=== PATIENT | female | born 1980 | race Caucasian/White ===

== ENCOUNTER 2019-10-05 11:59 | Outpatient (REF) | payer SELFPAY ==
--- NOTE | 2019-10-05 11:20 | PAPFT_PTH ---
PATIENT: Dulce Castañeda LOC: N U#:[id number] AGE/SX: 39/F ROOM: RE10/05/[address]: Lori Paredes DO : 1980 BED: DIS: 10/05/2019 SPEC #: [id number] RECD: 10/05/19 16:54 STATUS: CARLOS REQ #: [id number] JEREMIAS: 10/05/19 11:[address]: Lori Paredes DEPT: [facility] Cytology RECD BY: Donaldo Manning Tissues: 1 - CX/ENDOCX FOR PAP SMEARS Procedures: PAP THIN PREP/UVM Screening HPV DNA PROBE Comments: [id number]
== END 2019-10-05 12:19 ==
LOC: LBN 11:59
PROVIDERS: Visit Provider Obstetrics & Gynecology
DX: Z12.4 Encounter for screening for malignant neoplasm of cervix (principal); Z12.79 Encounter for screening for malignant neoplasm of other genitourinary organs; R87.610 Atypical squamous cells of undetermined significance on cytologic smear of cervix (ASC-US); Z11.51 Encounter for screening for human papillomavirus (HPV)
CPT/HCPCS: 88142; 87624

== ENCOUNTER 2019-10-06 12:38 | Outpatient (REF) | payer SELFPAY ==
--- NOTE | 2019-10-06 11:45 | SKI_PTH ---
PATIENT: Dulce Castañeda LOC: [facility] U#:[id number] AGE/SX: 39/F ROOM: RE10/06/[address]: Ama Patel : 1980 BED: DIS: 10/06/2019 SPEC #: [id number] RECD: 10/06/19 13:00 STATUS: CARLOS REQ #: [id number] JEREMIAS: 10/06/19 11:[address]: Ama Patel DEPT: Surgical Specimen RECD BY: Hanna Matute ENTERED: 10/06/19 13:00 SP TYPE: JUANITA OROZCO DR: Unknown,Unknown Tissues: 1 - SKIN BIOPSY(SHAVE/PUNCH) Procedures: SKIN LEVEL 4 Comments: [id number]
== END 2019-10-06 12:58 ==
LOC: LBN 12:38
PROVIDERS: Visit Provider Surgery
DX: L82.1 Other seborrheic keratosis (principal)
CPT/HCPCS: 88305

== ENCOUNTER 2020-05-15 09:06 | Emergency (ER) | payer OTHER, SELFPAY ==
[2020-05-15 09:12] VITALS: BP 129/88; PULSE 86; RESP 18; TEMP 36.6; O2SAT 99
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
[2020-05-15] MEDS: Acetaminophen 500 MG TAB 1000 MG PO (09:37)
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
[2020-05-15 10:14] VITALS: BP 122/77; PULSE 74; RESP 18; TEMP 37; O2SAT 100
[2020-05-15 11:13] VITALS: BP 113/72; PULSE 76; RESP 18; TEMP 37; O2SAT 98
--- NOTE | 2020-05-15 16:54 | NUR.NOTE ---
Pt Rx for cyclobenzaprine did not transmit to pharmacy. Rx called in by phone to [facility] per pt request
== END 2020-05-15 11:20 | disposition home or self-care (01) ==
PROVIDERS: Emergency Provider Physician Assistant; PCP Physician Assistant Medical
DX: S93.491A Sprain of other ligament of right ankle, initial encounter (principal); M54.5 Low back pain; R51.9 Headache, unspecified; V47.5XXA Car driver injured in collision with fixed or stationary object in traffic accident, initial encounter
CPT/HCPCS: 99284; 70450; 72110; 72125; 73610

== ENCOUNTER 2022-06-02 19:42 | Emergency (ER) | payer SELFPAY ==
[2022-06-02 19:51] VITALS: BP 135/87; PULSE 90; RESP 15; TEMP 35.9; O2SAT 95
--- NOTE | 2022-06-02 20:00 | DI.RAD_ITS ---
Exam(s) XR CHEST 2V PA LATERAL EXAM: XR CHEST 2V PA LATERAL CLINICAL HISTORY: Cough, SOB. TECHNIQUE: 2D digital imaging was performed. COMPARISON: No exams were available for comparison FINDINGS: 2 views: Heart size is normal. The mediastinum is not widened. Lungs are clear. No infiltrates nor pleural effusions. IMPRESSION: No acute pulmonary findings. DATA REPOSITORY: RADIATION DOSE DELIVERED:
--- NOTE | 2022-06-02 20:04 | ED.GENADUL_ITS ---
Discharge Plan Disposition Patient Disposition: Home Discharge Details Clinical Impression: Bronchitis Primary Care Provider: Lex Zavala ED Provider: Fina Blue Home Meds and New Rx's Prescriptions: New azithromycin 250 mg tablet See Rx Instructions .ROUTE .COMPLEX 6 Days Qty: 6 0RF Rx Instructions: For 250 mg dose pack: take 500 mg today (day 1), then 250 mg for 4 days (days 2-5) Continued albuterol sulfate 90 mcg/actuation HFA aerosol inhaler 2 puff inhalation Q6H PRN (Reason: shortness of breath or wheezing) Qty: 6.7 0RF (DME) Aerochamber MV Spacer See Rx Instructions .Route Qty: 1 0RF Rx Instructions: As directed amoxicillin-pot clavulanate 875-125 mg tablet 1 tab PO BID 7 Days Qty: 14 0RF Rx Instructions: Take with meal. Take 1 pill every 12 hours x 7days benzonatate 100 mg capsule 100 mg PO TID PRN (Reason: cough) 7 Days Qty: 20 0RF Mirena 1 EACH intrauterine device 1 ea Intrauterine ONCE Qty: 1 Discharge Instructions Instructions: Acute Bronchitis (ED) Additional Instructions: Please stop the Augmentin and take the azithromycin as prescribed. Chest x-ray shows bronchitis. No evidence of pneumonia. Continue taking the albuterol inhaler and Tessalon Perles. Mucinex will make her cough worse as this is an expectorant. Follow up with primary care provider in 3-5 days. Return to ED sooner if any worsening or concerns. Increase oral fluids. Please take Tylenol or Ibuprofen with food every 4-6 hours as needed for pain and swelling. Referrals: Lex Zavala PA [Primary Care Provider] - 5 days Medical Decision Making 42-year-old female presents to the ER with URI type symptoms after being seen in urgent care 2 days ago being diagnosed with URI prescribed albuterol, and Augmentin and Tessalon Perles. She also reports she been taking Mucinex. Cough is worse at night she is having hard time sleeping. She is not a smoker. She reports not feeling any better. Chest x-ray ordered. We will consider changing her antibiotics to azithromycin or doxycycline. X-ray result noted below. This text was generated using [employer] system, please disregard any oddities of phrase or misspellings. Imaging Data Radiologic Study: Imaging: X-Ray Radiologist's impression: TECHNIQUE: Imaging protocol: Radiologic exam of the chest. Views: 2 views. COMPARISON: CT HEAD CERVICAL SPINE WO 05/15/2020 9:39 AM FINDINGS: Lungs: Question mild peribronchial thickening. No consolidation. Pleural spaces: Unremarkable. No pleural effusion. No pneumothorax. Heart/Mediastinum: Unremarkable. No cardiomegaly. Bones/joints: Unremarkable. IMPRESSION: Question mild bronchitis No focal consolidation Thank you for allowing us to participate in the care of your patient. Dictated and Authenticated by: Joce Felipe MD HPI General Mode of arrival: ambulatory . Date/Time Provider Initiated Documentation: 06/02/22 19:42 . Limitations to Documentation: no limitations . Information obtained by: patient, RN notes reviewed and old records reviewed . HPI Narrative: 42-year-old female presents to the ER with URI type symptoms after being seen in urgent care 2 days ago being diagnosed with URI prescribed albuterol, and Augmentin and Tessalon Perles. She also reports she been taking Mucinex. Cough is worse at night she is having hard time sleeping. She is not a smoker. She reports not feeling any better. Related Data Home Medications Medication Instructions Recorded Confirmed levonorgestrel 21 mcg/24 hours (8 1 ea intrauterine ONCE #1 implant 01/20/17 06/02/22 yrs) 52 mg intrauterine device (Mirena) albuterol sulfate 90 mcg/actuation 2 puff inhalation Q6H PRN 03/22/22 06/02/22 aerosol inhaler shortness of breath or wheezing #6.7 grams inhalational spacing device #1 ea 03/22/22 06/02/22 (Aerochamber MV spacer) amoxicillin 875 mg-potassium 1 tab PO BID 7 days #14 tabs 05/31/22 06/02/22 clavulanate 125 mg tablet benzonatate 100 mg capsule 100 mg PO TID PRN cough 7 days #20 05/31/22 06/02/22 caps azithromycin 250 mg tablet See Rx Instructions PO .COMPLEX 6 06/02/22 days #6 tabs Previous Rx's Medication Instructions Recorded albuterol sulfate 90 mcg/actuation 2 puff inhalation Q6H PRN 03/22/22 aerosol inhaler shortness of breath or wheezing #6.7 grams inhalational spacing device #1 ea 03/22/22 (Aerochamber MV spacer) amoxicillin 875 mg-potassium 1 tab PO BID 7 days #14 tabs 05/31/22 clavulanate 125 mg tablet benzonatate 100 mg capsule 100 mg PO TID PRN cough 7 days #20 05/31/22 caps azithromycin 250 mg tablet See Rx Instructions PO .COMPLEX 6 06/02/22 days #6 tabs Allergies Allergy/AdvReac Type Severity Reaction Status Date / Time No Known Drug Allergies Allergy Unverified 06/02/22 19:57 General Stated Complaint: RespSymp NARCISA: 3 Review of Systems All systems reviewed & are unremarkable except as noted in HPI and below Cardiovascular Cardiovascular: Reports dyspnea Respiratory Respiratory: Reports cough and Reports dyspnea PFSH All Active Problems (Updated 06/02/22 @ 21:24 by Fina Blue NP) Bronchitis (Acute) Ankle sprain (Acute) Headache (Acute) Contraception management (Acute) Well woman exam with routine gynecological exam (Acute) Pigmented skin lesion of uncertain nature (Acute) Family History Other Colon cancer Social History Smoking/Tobacco Use Status: Former Tobacco Use Second Hand Exposure: No Smoking risk assessment performed?: Yes Alcohol Intake: former Drug use: Never Substance use type: does not use Household members: significant other and children Number of Children: 1 What is your relationship status?: living with partner Panel score (0-1 are the most socially isolated patients): 1 Seatbelt use: always Do you feel safe at home: Yes Do you feel safe in your relationship?: Yes Female Reproductive History Menstrual control method: progestin IUCD and other (mirena inserted 04/2011) History History 2 Para Hx # Term Pregnancies 1 Multiple births Hx # Pregnancies Ectopic pregnancies AB induced Hx Number of Living Children AB spontaneous Exam Narrative Exam Narrative: Constitutional: Alert and oriented x3. Appears stated age. Normal body habitus. Head: Normocephalic, no trauma. Eyes: Pupils PERRL, Red reflex noted, EOM's intact. Eyelids symmetrical without lesions, discharge, or swelling. ENT: Bilateral TM's WNL, External ear normal to inspection, no mastoid TTP, swelling, or erythema, Nasal turbinates WNL, no nasal discharge. Normal dentition, Posterior pharynx WNL, no exudate. Chest: RRR, Normal S1, S2, distal pulses intact. Resp: Lungs clear to auscultation bilaterally, no wheezes, rales, or rhonchi. Abdomen: Soft, non-distended, Normoactive bowel sounds all 4 quads. Musculoskeletal: Normal gait, 5/5 strength to all four extremities. Skin: No suspicious rashes or lesions. Capillary refill less than 2 sec. Neurologic: Cranial nerves II-XII intact. Alert and oriented x 3. Motor: No deficits noted. Sensory: Intact bilaterally all 4 extremities. Reflexes: DTR's intact bilaterally.. Hematologic/Lymphatic: No ecchymosis, no lymphadenopathy. Course Vital Signs Vital signs: Vital Signs Temperature 35.9 C L 06/02/22 19:51 Pulse 90 06/02/22 19:51 Respiratory Rate 15 06/02/22 19:51 Blood Pressure 135/87 06/02/22 19:51 Pulse Oximetry 95 06/02/22 19:51 Temperature 35.9 C L 06/02/22 19:51 Temperature Source Temporal Artery Scan 06/02/22 19:51 Pulse 90 06/02/22 19:51 Respiratory Rate 15 06/02/22 19:51 Respiratory Effort Short of Breath 06/02/22 19:56 Blood Pressure 135/87 06/02/22 19:51 Blood Pressure Position Sitting 06/02/22 19:51 Pulse Oximetry 95 06/02/22 19:51 Oxygen Delivery Method Room Air 06/02/22 19:51 Oxygen Flow Rate 0 06/02/22 19:51 Pain Level 0 06/02/22 19:51
--- NOTE | 2022-06-02 21:22 | DI.VRAD_ITS ---
PROCEDURE INFORMATION: Exam: XR Chest Exam date and time: 06/02/2022 8:45 PM Age: 42 years old Clinical indication: Cough and shortness of breath; Patient HX: Cough, SOB TECHNIQUE: Imaging protocol: Radiologic exam of the chest. Views: 2 views. COMPARISON: CT HEAD CERVICAL SPINE WO 05/15/2020 9:39 AM FINDINGS: Lungs: Question mild peribronchial thickening. No consolidation. Pleural spaces: Unremarkable. No pleural effusion. No pneumothorax. Heart/Mediastinum: Unremarkable. No cardiomegaly. Bones/joints: Unremarkable. IMPRESSION: Question mild bronchitis No focal consolidation Dictated and Authenticated by: Joce Felipe MD. Ordering:EMMANUEL Harden MD
== END 2022-06-02 21:40 | disposition home or self-care (01) ==
PROVIDERS: Emergency Provider Registered Nurse Emergency; PCP Physician Assistant Medical
DX: J40 Bronchitis, not specified as acute or chronic (principal)
CPT/HCPCS: 99283; 71046; 99284

== ENCOUNTER → 2023-02-28 00:53 | Outpatient (CLI) | payer MEDICAID, SELFPAY ==
--- NOTE | 2023-02-28 09:45 | DI.MAMMO_ITS ---
Exam(s) MAMMO SCREENING EXAM: MAMMO SCREENING CLINICAL HISTORY: SCREENING,Z12.31 TECHNIQUE: Mammograms were interpreted according to the usual protocol including computer analysis w [employer] CAD system, tomosynthesis and C-view imaging. COMPARISON: None. Baseline examination. FINDINGS: The breasts are composed of heterogeneously dense fibroglandular densities, Breast Density category C . No suspicious masses or suspicious microcalcifications are seen. No skin thickening or abnormal axillary lymph nodes are seen. IMPRESSION: BI-RADS Category 1, Negative mammogram. Yearly screening mammography is recommended. Breast Density Category C, heterogeneously Dense. The mammogram demonstrates the patient's breast tissue is dense. Dense breast tissue is very common a nd is not abnormal but dense breast tissue can make it harder to find cancer on a mammogram. Also, de nse breast tissue may increase breast cancer risk. This information about the result of the mammogram report was provided to the patient to raise their awareness. Use this report when you speak with the patient about their risks for breast cancer, which includes their family history. At that time, you may recommend additional screening tests (Ultrasound or MRI) as they might be useful based on their r isk. A negative radiographic report should not delay biopsy if a dominant or clinically suspicious mass is present. Up to ten percent of cancers are not identified on mammography. A negative report may reinforce clinical impression. Adenosis and dense breasts may obscure an underlying neoplasm. False positive reports average 6 to 10%.
== END ==
PROVIDERS: PCP Physician Assistant Medical; Visit Provider Physician Assistant Medical
DX: Z12.31 Encounter for screening mammogram for malignant neoplasm of breast (principal)
CPT/HCPCS: 77063; 77067

== ENCOUNTER 2023-04-09 15:19 | Outpatient (REF) | payer MEDICAID, SELFPAY ==
[2023-04-09 15:21] LABS: Abs Immature Grans 0.01 10^3/uL (0.0-0.06); Absolute Basophil Count 0.02 10^3/uL (0.0-0.2); Absolute Eosinophil Count 0.13 10^3/uL (0.0-0.7); Absolute Lymphocyte Count 0.97 10^3/uL (1.2-3.4); Absolute Monocyte Count 0.37 10^3/uL (0.1-0.8); Absolute Neutrophil Count 2.84 10^3/uL (1.2-6.7); Basophils % 0.5; HCT 43.2 % (36.0-46.0); HGB 14.9 g/dL (11.2-15.7); Immature Grans % 0.2; Lymphocytes % 22.4; MCH 29.4 pg (27.0-33.0); MCHC 34.5 % (32.0-36.0); MCV 85 fL (80-95); MPV 11.4 fL (8.0-11.0); Monocytes % 8.5; Neutrophils % 65.4; Platelet Count 200 10^3/uL (130-400); RBC 5.07 10^6/uL (3.93-5.22); RDW 11.9 % (11.7-14.6); RDW-SD 36.4 fL; WBC 4.34 10^3/uL (4.4-10.8)
[2023-04-09 15:40] LABS: ALT 31 U/L (14-59); AST 20 U/L (15-37); Albumin 3.6 g/dL (3.4-5.0); Alkaline Phosphatase 49 U/L (46-116); Anion Gap 9.3 mmol/L (3-11); BUN 11 mg/dL (7-18); Bilirubin, Total 0.8 mg/dL (0.2-1.0); CO2 24.7 mmol/L (21.0-32.0); CREATININE 0.7 mg/dL (0.55-1.02); Calcium 8.4 mg/dL (8.5-10.1); Chloride 103 mmol/L (98-107); Estimated GFR 111.36 (mL/min/1.73m2); Glucose 98 mg/dL (74-106); Magnesium 2.2 mg/dL (1.8-2.4); Potassium 3.8 mmol/L (3.5-5.1); Sodium 137 mmol/L (136-145); Total Protein 7.4 g/dL (6.4-8.2)
== END 2023-04-09 15:20 | disposition home or self-care (01) ==
LOC: NCHCN 15:19
PROVIDERS: PCP Physician Assistant Medical; Visit Provider Physician Assistant Medical
DX: F50.81 Binge eating disorder (principal); G43.909 Migraine, unspecified, not intractable, without status migrainosus
CPT/HCPCS: 80053; 83036; 83735; 84443; 85025

== ENCOUNTER 2024-06-24 01:05 | Outpatient (CLI) | payer MEDICAID, SELFPAY ==
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
== END 2024-06-24 01:25 ==
PROVIDERS: PCP Physician Assistant Medical; Visit Provider Family Medicine
DX: M25.561 Pain in right knee (principal)
CPT/HCPCS: 73564

== ENCOUNTER 2024-06-27 12:01 | Emergency (ER) | payer MEDICAID, OTHER, SELFPAY ==
[2024-06-27 12:05] VITALS: BP 148/94; PULSE 106; RESP 20; TEMP 36.4; O2SAT 100
--- NOTE | 2024-06-27 12:18 | NUR.NOTE ---
Nursing Note: umbrella advocate paged, waiting for call back
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
[2024-06-27 13:43] LABS: Bilirubin Negative (Negative); Blood Negative (Negative); Clarity Clear (Clear); Glucose Negative (Negative); Ketones Negative (Negative); Leukocyte Esterase Negative (Negative); Nitrite Negative (Negative); Specific Gravity 1.015 (1.005-1.025); Urobilinogen 0.2 mg/dL (Up to 0.2)
[2024-06-27] MEDS: Doxycycline Hyclate 100 MG CAP PO (14:53)
[2024-06-27] MEDS: Diph,Pertuss(Acell),Tet Vac/Pf 0.5 ML SYR IM (14:53)
[2024-06-27] MEDS: cefTRIAXone 500 MG VIAL IM (15:03)
[2024-06-27 15:13] VITALS: BP 139/81; PULSE 89; RESP 14; O2SAT 100
[2024-06-27] MEDS: Lidocaine 1% Multi-Dose 50 ML VIAL (15:16)
[2024-06-29 12:35] LABS: Chlamydia Result Negative (Negative); GC Result Negative (Negative)
== END 2024-06-27 15:27 | disposition home or self-care (01) ==
PROVIDERS: Emergency Provider Emergency Medicine; PCP Physician Assistant Medical
DX: T74.21XA Adult sexual abuse, confirmed, initial encounter (principal); Z23 Encounter for immunization
CPT/HCPCS: 87491; 87591; 90471; 90715; 96372; 99285; 81003; 87480; 87510; 87660; 99284; J0696; J2003